=== PATIENT | female | born 1990 | race Two or more races ===

== ENCOUNTER 2024-01-14 08:49 | Outpatient (CLI) | payer OTHER | END 2024-01-14 08:56 | disposition home or self-care (01) | LOC: PRENATAL 08:49 | PROVIDERS: ATTEND Obstetrics & Gynecology Maternal & Fetal Medicine | DX: O36.80X0 Pregnancy with inconclusive fetal viability, not applicable or unspecified (principal); Z36.82 Encounter for antenatal screening for nuchal translucency; Z36.9 Encounter for antenatal screening, unspecified; Z3A.11 11 weeks gestation of pregnancy ==

== ENCOUNTER 2024-05-21 01:41 | Outpatient (CLI) | payer OTHER ==
[~2024-05-21] VITALS: Ht 167.6 cm; Wt 88.0 kg
[2024-05-21] MEDS ORDERED: PEPCID20 MG PO (01:52)
[2024-05-21] MEDS ORDERED: PRENATAL CAPLE1 EAC1 (01:52)
[2024-05-21] MEDS ORDERED: RINGERS SOLUTION,LACTATED 1,000 ML IV SCH (02:00)
[2024-05-21 02:02] LABS: HEMATOCRIT 33.1 % (36.0-45.00); HEMOGLOBIN 11.5 g/dL (12.0-15.00); MEAN CELL VOLUME 89.1 fL (80.00-100.00); MEAN CORPUSCULAR HEMOGLOBIN 30.9 pg (27.00-32.0); MEAN CORPUSCULAR HGB CONC 34.6 g/dl (32.0-36.0); PH,URINE 6.5 (5.0-8.0); PLATELET COUNT 213 K/uL (150-450); RED BLOOD COUNT 3.72 M/uL (4.00-6.00); RED CELL DISTRIBUTION WIDTH 14.2 % (11.5-14.5); URINE APPEARANCE Cloudy; URINE BILIRRUBIN Negative (NEGATIVE); URINE BLOOD Negative; URINE COLOR Yellow; URINE GLUCOSE Negative (NEGATIVE); URINE LEUKOCYTE Large; URINE NITRATE Negative; URINE PROTEIN Negative (NEGATIVE); URINE UROBILINOGEN 0.2 E.U./dl
[2024-05-21 02:06] LABS: URINE BACTERIA 5189.8 uL (0.0-1933); URINE EPITHELIAL CELLS 132.7 uL (0.0-38.8); URINE RBC 4.5 uL (0.0-20.8); URINE WBC 261.7 uL (0.0-23.2)
== END 2024-05-21 12:08 | disposition home or self-care (01) ==
LOC: OBS/DEL 01:41
PROVIDERS: ATTEND Student in an Organized Health Care Education/Training Program
DX: O46.8X3 Other antepartum hemorrhage, third trimester (principal); Z3A.30 30 weeks gestation of pregnancy

== ENCOUNTER 2024-06-03 10:05 | Outpatient (CLI) | payer OTHER ==
[~2024-06-03 10:05] MED LIST: PEPCID20 MG PO; PRENATAL CAPLE1 EAC1
== END 2024-06-03 10:06 | disposition home or self-care (01) ==
LOC: PRENATAL 10:05
PROVIDERS: ATTEND Obstetrics & Gynecology Maternal & Fetal Medicine
DX: O26.843 Uterine size-date discrepancy, third trimester (principal); O36.8130 Decreased fetal movements, third trimester, not applicable or unspecified; Z3A.31 31 weeks gestation of pregnancy

== ENCOUNTER 2024-07-07 14:38 | Outpatient (CLI) | payer OTHER ==
[2024-07-07 15:25] VITALS: BP 113/71
[2024-07-07 16:44] LABS: HEMATOCRIT 34.3 % (36.0-45.00); HEMOGLOBIN 11.9 g/dL (12.0-15.00); MEAN CELL VOLUME 90.8 fL (80.00-100.00); MEAN CORPUSCULAR HEMOGLOBIN 31.4 pg (27.00-32.0); MEAN CORPUSCULAR HGB CONC 34.6 g/dl (32.0-36.0); PH,URINE 5.5 (5.0-8.0); PLATELET COUNT 170 K/uL (150-450); RED BLOOD COUNT 3.77 M/uL (4.00-6.00); RED CELL DISTRIBUTION WIDTH 13.8 % (11.5-14.5); URINE APPEARANCE Clear; URINE BILIRRUBIN Negative (NEGATIVE); URINE BLOOD Moderate; URINE COLOR Yellow; URINE GLUCOSE Negative (NEGATIVE); URINE KETONE 15 (NEGATIVE); URINE LEUKOCYTE Moderate; URINE NITRATE Negative; URINE PROTEIN Negative (NEGATIVE); URINE UROBILINOGEN 0.2 E.U./dl
[2024-07-07 16:47] LABS: URINE BACTERIA 2897.9 uL (0.0-1933); URINE EPITHELIAL CELLS 86.4 uL (0.0-38.8); URINE WBC 66.4 uL (0.0-23.2)
[2024-07-07 16:53] LABS: URINE CAST 0.15 uL (0.0-1.40)
[2024-07-07 17:07] LABS: INR < 0.93; PARTIAL THROMBOPLASTIN TIME 25.4 SECONDS (22.0-34.0)
[2024-07-07 17:17] LABS: ALBUMIN 2.7 gm/dL (3.4-5.0); BILIRUBIN TOTAL 0.35 mg/dL (0.3-1.2); CALCIUM 9.3 mg/dL (8.5-10.1); CREATININE SERUM 0.66 mg/dL (0.55-1.02); GFR 103.78; GLOBULINA 3.5 G/DL (2.4-3.5); TOTAL PROTEIN 6.2 gm/dL (6.4-8.2)
[2024-07-07 19:23] VITALS: BP 118/73
[2024-07-07 21:13] VITALS: BP 135/84
[2024-07-07 23:41] VITALS: BP 116/72
[2024-07-08] VITALS (7 sets, daily range): BP systolic 107–129; BP diastolic 61–79; O2SAT 98
[2024-07-08 16:50] LABS: CREATININE URINE 42.8 MG/DL; URINE PROT QUANT 24HR 6.4 MG/DL
[2024-07-08 16:52] LABS: URINE PROT QUANT 24 HR 166.4 MG/24HR (42-225)
[2024-07-08 17:18] LABS: CREATININE SERUM 0.53 mg/dL (0.6-1.0)
[2024-07-08 17:19] LABS: CREATINE CLEARANCE 146.1 ML/MIN (97-137)
== END 2024-07-08 18:30 | disposition home or self-care (01) ==
LOC: OBS/DEL 14:38
PROVIDERS: ATTEND Obstetrics & Gynecology
DX: O26.893 Other specified pregnancy related conditions, third trimester (principal); O26.849 Uterine size-date discrepancy, unspecified trimester; O36.8199 Decreased fetal movements, unspecified trimester, other fetus; Z3A.36 36 weeks gestation of pregnancy

== ENCOUNTER 2024-07-26 13:30 | Inpatient (IN) | payer OTHER ==
[~2024-07-26] VITALS: Ht 170.2 cm; Wt 90.7 kg
[2024-07-26 15:57] LABS: HEMATOCRIT 37.3 % (36.0-45.00); HEMOGLOBIN 12.8 g/dL (12.0-15.00); MEAN CELL VOLUME 91.2 fL (80.00-100.00); MEAN CORPUSCULAR HEMOGLOBIN 31.2 pg (27.00-32.0); MEAN CORPUSCULAR HGB CONC 34.2 g/dl (32.0-36.0); PLATELET COUNT 201 K/uL (150-450); RED CELL DISTRIBUTION WIDTH 13.6 % (11.5-14.5)
[2024-07-26 15:59] LABS: PH,URINE 5.5 (5.0-8.0); URINE APPEARANCE Cloudy; URINE BILIRRUBIN Negative (NEGATIVE); URINE BLOOD Moderate; URINE COLOR Yellow; URINE GLUCOSE Negative (NEGATIVE); URINE KETONE Negative (NEGATIVE); URINE LEUKOCYTE Small; URINE NITRATE Negative; URINE PROTEIN Negative (NEGATIVE); URINE UROBILINOGEN 0.2 E.U./dl
[2024-07-26 16:02] LABS: URINE BACTERIA 1242.1 uL (0.0-1933); URINE EPITHELIAL CELLS 40.3 uL (0.0-38.8); URINE RBC 10.2 uL (0.0-20.8); URINE WBC 10.6 uL (0.0-23.2)
[2024-07-26 16:20] LABS: ALBUMIN 2.9 gm/dL (3.4-5.0); BILIRUBIN TOTAL 0.32 mg/dL (0.3-1.2); CALCIUM 9.5 mg/dL (8.5-10.1); CREATININE SERUM 0.59 mg/dL (0.55-1.02); GFR 118.12; GLOBULINA 4.1 G/DL (2.4-3.5); INR < 0.93; PARTIAL THROMBOPLASTIN TIME 27.5 SECONDS (22.0-34.0); POTASSIUM 4.02 mEq/L (3.5-5.1); PROTHROMBIN TIME 10.1 SECONDS (9.0-11.5)
[2024-07-30 07:22] VITALS: BP 130/81
[2024-07-30] MEDS ORDERED: RINGERS SOLUTION,LACTATED 1,000 ML IV SCH (08:00)
[2024-07-30] MEDS ORDERED: OXYTOCIN 500 ML IV SCH (08:00)
[2024-07-30 08:21] LABS: HEMATOCRIT 36.6 % (36.0-45.00); HEMOGLOBIN 12.5 g/dL (12.0-15.00); MEAN CORPUSCULAR HEMOGLOBIN 30.6 pg (27.00-32.0); PLATELET COUNT 184 K/uL (150-450); RED BLOOD COUNT 4.07 M/uL (4.00-6.00); RED CELL DISTRIBUTION WIDTH 13.7 % (11.5-14.5)
[2024-07-30 08:51] LABS: PH,URINE 5.5 (5.0-8.0); URINE APPEARANCE Clear; URINE BILIRRUBIN Negative (NEGATIVE); URINE BLOOD Small; URINE COLOR Yellow; URINE GLUCOSE Negative (NEGATIVE); URINE KETONE Negative (NEGATIVE); URINE LEUKOCYTE Small; URINE NITRATE Negative; URINE PROTEIN Negative (NEGATIVE); URINE UROBILINOGEN 0.2 E.U./dl
[2024-07-30 08:55] LABS: URINE BACTERIA 20.1 uL (0.0-1933); URINE EPITHELIAL CELLS 7.8 uL (0.0-38.8); URINE RBC 29.9 uL (0.0-20.8)
[2024-07-30] MEDS ORDERED: ONDANSETRON HCL 2 MG/ML VIAL IV NR (09:45)
[2024-07-30 10:57] VITALS: BP 138/81
[2024-07-30 11:03] VITALS: BP 137/80
[2024-07-30] MEDS ORDERED: ACETAMINOPHEN 325 MG TABLET PO PRN (11:15)
[2024-07-30] MEDS ORDERED: CHLORHEXIDINE GLUCONATE 120 ML BOTTLE TOP SCH (11:15)
[2024-07-30] MEDS ORDERED: OXYTOCIN 1,000 ML IV SCH (11:15)
[2024-07-30] MEDS ORDERED: IBUprofen 400 MG TABLET PO PRN (11:15)
[2024-07-30 11:16] VITALS: BP 132/60
[2024-07-30] MEDS ORDERED: ERYTHROMYCIN BASE OPHT 1GM EACH TUBE OP ONE (11:30)
[2024-07-30] MEDS ORDERED: LIDOCAINE HCL 1% 10ML VIAL PERCUT ONE (11:30)
[2024-07-30 13:10] VITALS: BP 140/80
[2024-07-30 16:17] VITALS: BP 132/86
[2024-07-31 00:27] VITALS: BP 126/73
[2024-07-31 07:23] LABS: HEMATOCRIT 31.9 % (36.0-45.00); MEAN CELL VOLUME 89.7 fL (80.00-100.00); MEAN CORPUSCULAR HEMOGLOBIN 30.9 pg (27.00-32.0); MEAN CORPUSCULAR HGB CONC 34.5 g/dl (32.0-36.0); PLATELET COUNT 165 K/uL (150-450); RED BLOOD COUNT 3.56 M/uL (4.00-6.00)
[2024-07-31 08:00] VITALS: BP 127/80
[2024-07-31] MEDS ORDERED: PNV,CALCIUM 72/IRON/FOLIC ACID 1 TAB TABLET PO SCH (09:00)
[2024-07-31 14:53] VITALS: BP 128/80
[2024-08-01] VITALS: BP 113/73
[2024-08-01 08:00] VITALS: BP 124/80
== END 2024-08-01 13:37 | disposition home or self-care (01) | DRG 807 ==
LOC: LDR 07-30 07:40 → OB/GYN 07-30 12:11
PROVIDERS: Obstetrics & Gynecology; ADMIT Student in an Organized Health Care Education/Training Program; ATTEND Student in an Organized Health Care Education/Training Program
PROC: 10E0XZZ Delivery of Products of Conception, External Approach (ICD-10-PCS; principal; 2024-07-30)
PROC: 0KQM0ZZ Repair Perineum Muscle, Open Approach (ICD-10-PCS; 2024-07-30)
PROC: 4A1HXCZ Monitoring of Products of Conception, Cardiac Rate, External Approach (ICD-10-PCS; 2024-07-30)
DX: O70.1 Second degree perineal laceration during delivery (principal); Z37.0 Single live birth; Z3A.40 40 weeks gestation of pregnancy; Z20.822 Contact with and (suspected) exposure to COVID-19